=== PATIENT | female | born 1995 | race Caucasian/White ===

== ENCOUNTER 2022-05-22 18:53 | Emergency (ER) | payer OTHER, SELFPAY ==
[2022-05-22 19:00] VITALS: BP 115/78; PULSE 124; RESP 20; TEMP 36.4; O2SAT 100; BMI 23.6
--- NOTE | 2022-05-22 19:11 | ED_ITS ---
HPI - General Adult General Chief complaint: Nausea/Vomiting Stated complaint: 10 and a half weeks , can't keep food down Time Seen by Provider: 05/22/22 19:06 Source: patient Mode of arrival: ambulatory Limitations: no limitations History of Present Illness HPI narrative: 27-year-old female at around 11 weeks gestation coming in today with approximately 12 hours of vomiting. She states that this happened 1 time with couple weeks ago but generally has been having a fairly easy as far as nausea and vomiting goes. She denies any fevers or chills. No chest or abdominal pain. No abdominal cramping. No vaginal discharge. No blood in her vomitus. She also did have 2 episodes of loose stools today. Denies any urinary symptoms. She does not take any medications. Related Data Home Medications Medication Instructions Recorded Confirmed No Known Home Medications 05/22/22 05/22/22 Allergies Allergy/AdvReac Type Severity Reaction Status Date / Time No Known Drug Allergies Allergy Verified 05/22/22 19:03 Review of Systems Status of ROS: Reports: 10 or more systems reviewed and unremarkable except as noted in History and below PFSH PFS Social History Smoking Status: Never smoker Do you use any of these nicotine containing products: None Second hand tobacco smoke exposure: No How often do you have a drink containing alcohol: never AUDIT-C Alcohol total score: 0 Non-prescribed substance use: denies use Exam Narrative: Exam Narrative: Well-nourished well-developed patient in no acute distress. Alert and oriented. Answers questions appropriately. Mood and affect are appropriate. Thoughts are goal oriented and rational. No tangential or magical thinking noted. Patient speaks in full sentences without needing to catch her breath. HEENT: Normocephalic atraumatic. Pupils are equally round reactive to light. Extraocular muscles are intact. Conjunctivae are moist without any icterus noted. Moist mucous membranes. Posterior pharynx is normal. Neck is soft without any lymphadenopathy or thyromegaly. No masses are appreciated. Cardiovascular: Heart is tachycardic with regular rhythm S1 and S2 are present without any murmurs. Lungs: Clear to auscultation bilaterally no wheezes rhonchi or rales are appreciated. Patient takes deep breaths without any discomfort. Abdomen: Soft and nontender nondistended with normal bowel sounds. No guarding or rebound. No masses or organomegaly appreciated. Extremities: Bilateral lower extremities are without edema. Normal DP and PT pulses. Skin: Well perfused without any obvious rashes. Const: Vital Signs, click to edit/add: Vital Signs - 24 hr 05/22/22 19:00 05/22/22 19:50 Temperature 97.6 F Pulse Rate [Pulse Oximeter] 124 H 94 Respiratory Rate 20 18 Blood Pressure [Ri t Upper Arm] 115/78 124/78 Pulse Oximetry 100 98 Oxygen Delivery Me thod Room Air Course Course Hospital Course: IV will be started and labs drawn. L of normal saline and Zofran ordered. Patient feeling significantly better. Drinking water without vomiting. Labs did show elevated white cell count of 15,000 and a slightly elevated bilirubin at 1.8. Vital Signs Vital signs: Initial Vital Signs Temperature 97.6 F 05/22/22 19:00 Temperature Source Temporal Artery Scan 05/22/22 19:00 Pulse Rate 124 H 05/22/22 19:00 Respiratory Rate 20 05/22/22 19:00 Blood Pressure 115/78 05/22/22 19:00 Blood Pressure Mean 90 05/22/22 19:00 Blood Pressure Position Sitting 05/22/22 19:00 Pulse Oximetry 100 05/22/22 19:00 Vital Signs Temperature 97.6 F 05/22/22 19:00 Pulse Rate 124 H 05/22/22 19:00 Respiratory Rate 20 05/22/22 19:00 Blood Pressure 115/78 05/22/22 19:00 Pulse Oximetry 100 05/22/22 19:00 Temperature 97.6 F 05/22/22 19:00 Pulse Rate 94 05/22/22 19:50 Respiratory Rate 18 05/22/22 19:50 Blood Pressure 124/78 05/22/22 19:50 Pulse Oximetry 98 05/22/22 19:50 Oxygen Delivery Method Room Air 05/22/22 19:50 Medical Decision Making MDM Narrative Medical decision making narrative: 27-year-old female 11 weeks with 12 hours of vomiting. Labs slightly abnormal but consistent with 12 hours of vomiting. She is feeling significantly better after fluids and Zofran. Pulse came down to 94 with treatment. At this time patient will be discharged home instructed to follow-up with her primary care provider or [employer] this coming week. Certainly return to the ER if symptoms return. Lab Data Lab results reviewed: Yes I reviewed the patient's lab results Labs: Lab Results 05/22/22 Range/Units 19:26 WBC 15.00 H (4.50-11.00) K/uL RBC 5.10 (4.00-5.20) m/uL Hgb 14.9 (12.0-16.0) gm/dL Hct 43.8 (33.0-51.0) % MCV 86 (80-100) fL MCH 29 (26-34) pg MCHC 34 (32-36) gm/dL RDW Coeff of Dara 11.9 (11.5-15.5) % Plt Count 215 (140-440) K/uL Neut % (Auto) 89.5 H (42.0-72.0) % Lymph % (Auto) 6.1 L (20-44) % [place] % (Auto) 4.0 (0.0-11.0) % Eos % (Auto) 0.1 (0.0-7.0) % Baso % (Auto) 0.1 (0.0-3.0) % Neut # (Auto) 13.40 H (1.7-7.0) K/uL Lymph # (Auto) 0.90 (0.90-2.90) K/uL [place] # (Auto) 0.60 (0.00-0.90) K/UL Eos # (Auto) 0.00 (0.00-0.50) K/uL Baso # (Auto) 0.00 (0.00-0.30) K/uL Sodium 136 (135-149) mmol/L Potassium 4.1 (3.6-5.1) mmol/L Chloride 104 (96-114) mmol/L Carbon Dioxide 24 (20-32) mmol/L BUN 9 (5-24) mg/dL Creatinine 0.5 (0.5-1.5) mg/dL Estimated Creat Clear 154.77 Estimated GFR 133 ml/min Glucose 97 (60-115) mg/dL Calcium 9.4 (8.4-10.6) mg/dL Total Bilirubin 1.8 H (0.1-1.5) mg/dL Direct Bilirubin 0.2 (0.0-0.5) mg/dL AST 24 (12-35) U/L ALT 20 (4-35) U/L Alkaline Phosphatase 55 (40-150) U/L Total Protein 8.1 (6.0-8.3) g/dL Albumin 4.6 (3.3-5.0) g/dL Discharge Plan Discharge Clinical Impression: , Vomiting Patient Disposition: Home, Self-Care Condition: Improved Additional Instructions: Follow-up with your primary care provider or [employer] this coming week. Return to the ER if symptoms return. Prescriptions: No Action No Known Home Medications Follow Up/Referrals: Provider,Not a Local [Primary Care Provider] - Stand Alone Forms: Dear[employer] Info Instructions
[2022-05-22] MEDS: ONDANSETRON 2 MG/ML inj 4 MG IVP (19:25)
[2022-05-22] MEDS: 0.9 % SODIUM CHLORIDE 1000 ml 1,000 ML IV (19:25)
[2022-05-22 19:32] LABS: Basophils Percent Auto 0.1 % (0.0-3.0); Eosinophils Percent Auto 0.1 % (0.0-7.0); Hematocrit 43.8 % (33.0-51.0); Hemoglobin* 14.9 gm/dL (12.0-16.0); Immature Granulocytes Pct Auto 0.2 %; Lymphocytes Percent Auto 6.1 % (20-44); Mean Corpuscular HGB Conc 34 gm/dL (32-36); Mean Corpuscular Hemoglobin 29 pg (26-34); Mean Corpuscular Volume 86 fL (80-100); Neutrophils Percent Auto 89.5 % (42.0-72.0); Platelet Count* 215 K/uL (140-440); RDW Coefficient of Variation % 11.9 % (11.5-15.5)
[2022-05-22 19:37] LABS: Slide Review Reflex No
[2022-05-22 19:45] LABS: Albumin* 4.6 g/dL (3.3-5.0); Chloride* 104 mmol/L (96-114); Potassium* 4.1 mmol/L (3.6-5.1); Sodium* 136 mmol/L (135-149)
[2022-05-22 19:47] LABS: Carbon Dioxide* 24 mmol/L (20-32); Creatinine* 0.5 mg/dL (0.5-1.5); Est. Creatinine Clearance* 154.77; Estimated Glomerular Filt Rate 133 ml/min
[2022-05-22 19:48] LABS: Alanine Aminotransferase* 20 U/L (4-35); Alkaline Phosphatase* 55 U/L (40-150); Aspartate Amino Transferase* 24 U/L (12-35); Bilirubin Direct* 0.2 mg/dL (0.0-0.5); Bilirubin Total* 1.8 mg/dL (0.1-1.5); Blood Urea Nitrogen* 9 mg/dL (5-24); Calcium* 9.4 mg/dL (8.4-10.6); Glucose* 97 mg/dL (60-115); Total Protein* 8.1 g/dL (6.0-8.3)
[2022-05-22 19:50] VITALS: BP 124/78; PULSE 94; RESP 18; O2SAT 98
== END 2022-05-22 20:30 | disposition home or self-care (01) ==
PROVIDERS: Emergency Provider Family Medicine
DX: R11.2 Nausea with vomiting, unspecified (principal); Z3A.10 10 weeks gestation of pregnancy
CPT/HCPCS: 36415; 80048; 80076; 85025; 96374; 99283; 99284; J2405; J7030

== ENCOUNTER 2022-05-28 14:02 | Outpatient (CLI) | payer OTHER, SELFPAY ==
--- NOTE | 2022-05-28 14:00 | CRLHL7_ITS ---
For Patients: As a result of the Cures Act, medical imaging exams and procedure reports are released immediately into your electronic medical record. You may view this report before your referring provider. If you have questions, please contact your health care provider. INDICATION: First trimester scan, establish dates. COMPARISON: None. TECHNIQUE: Real-time hodgson-scale imaging of the pelvis was performed. FINDINGS: Sonographic imaging demonstrates a single living intrauterine gestation. The embryo demonstrates a regular cardiac rate measuring 167 beats per minute. The embryo`s crown-rump length measurement of 6.0 cm corresponds to a gestational age of 12 weeks 3 days with a sonographic due date of 12/07/2022. There is a normal-appearing yolk sac. There are no gross abnormalities noted within the embryo at this early state of development. The gestational sac has a normal appearance. There is no evidence of a perigestational hemorrhage. The amount of fluid within the sac appears appropriate for gestational age. The cervix is closed. The myometrium appears normal. The ovaries are of normal size. Corpus luteal cyst right ovary. There are no suspicious fluid collections noted in the cul-de-sac. IMPRESSION: Normal first trimester OB ultrasound exam. Gestational age calculated at 12 weeks 3 days with a sonographic due date of 12/07/2022. Dictated by Imer Pham MD @ 05/29/2022 11:53:52 AM (Electronically Signed)
== END 2022-05-28 14:03 | disposition home or self-care (01) ==
LOC: US 14:04
PROVIDERS: Visit Provider Advanced Practice Midwife
DX: Z34.91 Encounter for supervision of normal pregnancy, unspecified, first trimester (principal); Z3A.12 12 weeks gestation of pregnancy
CPT/HCPCS: 76801

== ENCOUNTER 2022-05-28 15:10 | Outpatient (CLI) | payer OTHER, SELFPAY ==
[2022-05-28 19:11] LABS: Chlamydia DNA Amplified* NOT DETECTED (No Detected); GC DNA Amplified* NOT DETECTED (No Detected)
== END 2022-05-28 15:11 | disposition home or self-care (01) ==
PROVIDERS: Visit Provider Advanced Practice Midwife
DX: Z34.91 Encounter for supervision of normal pregnancy, unspecified, first trimester (principal); Z3A.11 11 weeks gestation of pregnancy
CPT/HCPCS: 0353U; 82565; 82570; 84156; 84450; 84460; 84520; 84550; 86592; 86703; 86762; 86787; 86803; 86850; 86900; 86901; 87086; 87340; 87491; 87591

== ENCOUNTER 2022-07-23 12:58 | Outpatient (CLI) | payer OTHER, SELFPAY ==
--- NOTE | 2022-07-23 13:00 | CRLHL7_ITS ---
For Patients: As a result of the Century Cures Act, medical imaging exams and procedure reports are released immediately into your electronic medical record. You may view this report before your referring provider. If you have questions, please contact your health care provider. INDICATION: Evaluate anatomy. COMPARISON: 05/28/2022 TECHNIQUE: Real time hodgson scale imaging of the fetus was performed. FINDINGS: Sonographic imaging demonstrates a single living intrauterine gestation. Fetus demonstrates a regular cardiac rate of 159 beats per minute. Fetus has a mark breech position. The placenta lies posteriorly without evidence of placenta previa. The edge of the placenta is located 3.5 cm from the internal cervical os. Amniotic fluid volume appears normal. Single deepest vertical pocket: 3.8 cm. The cervix is closed and measures 4.8 cm in length. The composite ultrasound gestational age is calculated at 19 weeks 4 days with an estimated sonographic due date of 12/13/2022. The estimated weight is 334 grams which lies at the 69th %. The following biometric measurements were obtained: Biparietal diameter: 4.1 cm/18 weeks 3 days 7th% Head circumference: 16.9 cm/19 weeks 4 days 34th% Abdominal circumference: 16.0 cm/21 weeks 1 day 85th% Femur length: 3.0 cm/19 weeks 2 days 28th% The HC/AC ratio measures: 1.06 range (1.08-1.26) On anatomic survey, there is a normal appearance of the cerebral ventricles, cavum septi pellucidi, cisterna magna and cerebellum. The nose, lips, and facial profile appear normal. The cervical, thoracic and lumbar spine are well visualized and appear normal. There is a normal four-chamber heart view and the left and right ventricular outflow tracts appear normal. The diaphragm and stomach appear normal. The kidneys and bladder also appear normal. There is a normal three-vessel cord and cord insertion site. The four extremities appear normal. IMPRESSION: Normal OB ultrasound exam with concordance of clinical and sonographic dating. No intrinsic abnormalities noted on anatomic survey. Dictated by Imer Pham MD @ 07/25/2022 6:28:26 AM (Electronically Signed)
== END 2022-07-23 12:59 | disposition home or self-care (01) ==
LOC: US 12:59
PROVIDERS: Visit Provider Advanced Practice Midwife
DX: Z34.92 Encounter for supervision of normal pregnancy, unspecified, second trimester (principal); Z3A.19 19 weeks gestation of pregnancy
CPT/HCPCS: 76805

== ENCOUNTER 2022-09-18 10:50 | Outpatient (CLI) | payer OTHER, SELFPAY | END 2022-09-18 10:51 | disposition home or self-care (01) | LOC: NFLDREF 09-23 12:49 | PROVIDERS: Visit Provider Advanced Practice Midwife | DX: Z34.82 Encounter for supervision of other normal pregnancy, second trimester (principal); Z3A.27 27 weeks gestation of pregnancy | CPT/HCPCS: 86592 ==

== ENCOUNTER 2022-11-13 09:56 | Outpatient (CLI) | payer OTHER, SELFPAY ==
[2022-11-14 13:54] LABS: Strep B DNA Probe NEGATIVE (Negative)
[2022-11-14 14:15] LABS: Strep B Pen/Amox Allergy No
== END 2022-11-13 09:57 | disposition home or self-care (01) ==
LOC: NFLDREF 09:56 → LAB 14:46
PROVIDERS: Visit Provider Advanced Practice Midwife
DX: Z34.93 Encounter for supervision of normal pregnancy, unspecified, third trimester (principal)
CPT/HCPCS: 87081; 87653

== ENCOUNTER 2022-12-16 15:48 | Outpatient (CLI) | payer OTHER, SELFPAY ==
--- NOTE | 2022-12-16 16:00 | CRLHL7_ITS ---
For Patients: As a result of the Century Cures Act, medical imaging exams and procedure reports are released immediately into your electronic medical record. You may view this report before your referring provider. If you have questions, please contact your health care provider. INDICATION: Post-term . COMPARISON: None available. TECHNIQUE: Ultrasound OB pelvis biophysical profile. Real time hodgson scale imaging of the fetus was performed without non-stress testing. FINDINGS: Sonographic imaging demonstrates a single living intrauterine gestation. The fetus demonstrates a regular cardiac rate of 147 beats per minute. The fetus has a cephalic orientation. The placenta lies posteriorly. Single deepest pocket measures 3.7 cm (2/2). The fetus was active (2/2). There was normal flexion and extension of the trunk and extremities (2/2). The fetus demonstrated normal breathing movements (2/2). IMPRESSION: Normal biophysical profile score 8 out of 8. Dictated by Valeria Sanches MD @ 12/16/2022 9:23:50 PM (Electronically Signed)
== END 2022-12-16 15:49 | disposition home or self-care (01) ==
PROVIDERS: Visit Provider Advanced Practice Midwife
DX: O48.0 Post-term pregnancy (principal); Z3A.41 41 weeks gestation of pregnancy
CPT/HCPCS: 76819

== ENCOUNTER 2022-12-18 05:15 | Inpatient (IN) | payer OTHER, SELFPAY ==
[2022-12-18] VITALS (46 sets, daily range): BP systolic 106–139; BP diastolic 58–88; PULSE 90–133; RESP 16–18; TEMP 36.5–37.2; O2SAT 97–100; BMI 31.2
--- NOTE | 2022-12-18 05:17 | W.PM.LDBA ---
Subjective History of Present Illness Narrative: Flower is a 27 yo [id number] admitted to Labor and Delivery for spontaneous onset of labor/IOL for post-dates. She began having contractions last evening around 5 pm. She reports she did not sleep much because of the contractions. They became increasingly more intense throughout the night. She presented to triage early this morning. She was scheduled to have an IOL today for elective/post-dates. She will be 41 0/7 weeks tomorrow. She is currently supported by her , Reilly, and her behavioral health specialist, Gutierrez. She was in the tub for labor pain relief but felt things were slowing down. She plans to get out of the tub, move around and try to rest a little. She denies any leaking of fluid. She has declined cervical exam at this time. Her full history and physical was dictated by James Schultz CNM on 11/25/2022. Please see this for details. Specific Issues/Plans : Reilly H&P done by James Schultz on 11/25/22 1. Social anxiety -sees therapist 2. Hx of preeclampsia, diagnosed in labor, no medication needed -encouraged to start baby aspirin at 12 weeks -Baseline Labs WNL, P/c ratio 0.4, discuss repeat or consider 24 hour urine -Repeat p/c ratio: 0.4, 24 hour urine collection ordered 06/25 -24 hour urine, pc ratio 0.1 3. Hx of kidney stone. Passed one in 2019, was told there was a second that never passed 4. Varicella non immune. NEEDS vaccine PP. Completed 1 week BS testing from 08/24-08/30 with only 1 of 28 abnormal Needs pap PP COVID: declines Flu: declines Tdap: Will plan to decline Tdap OB - Problem Based A/P Additional Plan (1) Encounter for induction of labor: Status: Acute (2) Pain during labor: Status: Acute Plan ASSESSMENT:? 27 at 40 6/7 weeks gestation? complicated by:?varicella non-immune, hx of kidney stones, hx of Pre-e, and social anxiety Labor type: Spontaneous, Early labor? Category 1 FHR pattern.?? Labor complicated by: none? GBS negative? ? PLAN:? 1. Routine intrapartum cares as ordered. Continue with expectant management. Can consider augmentation if not progressing. 2. Monitoring per policy, intermittent? 3. Planning unmedicated . Desires water . Consent signed. Hep C negative. Candidate for analgesia of choice if desired.?? 4. Patient encouraged to reposition and ambulate to promote physiologic labor and .? 5. Anticipate ? Delivery/Labor/Induction Plan Plan: expectant management and induction (Scheduled for today, came in overnight for early labor; will augment labor if needed.) OB Exam Physical Exam Vital signs: Temp Pulse Resp BP Pulse Ox 97.9 F 90 16 130/84 99 12/18/22 03:06 12/18/22 05:05 12/18/22 03:06 12/18/22 03:06 12/18/22 03:06 Narrative: Vitals Reviewed Constitutional:? Alert and oriented x3 HEENT:? Normocephalic, atraumatic Neck:? Supple Lungs:? Clear to auscultation bilaterally Heart:? Regular rate and rhythm, no murmur, rub or gallop Abdomen:? Soft, nontender, and gravid. Vertex by Derrick's. US two days ago was vertex. Extremities:? No edema or erythema Cervix: Deferred by patient NST: 120 bpm/moderate variability/15x15 accelerations/no decelerations/contractions every 4-6 mins Since reactive NST, intermittent auscultation has been reassuring
[2022-12-18] MEDS: LACTATED RINGERS 1000 ML 1,000 ML 1200 ML IV (09:25)
--- NOTE | 2022-12-18 09:42 | P.OBPN_ITS ---
Subjective Date Seen: 12/18/22 Narrative: ?Nilda is coping with labor pain/contractions. ?Augustine and ariadne Whitley are with her for support. ?Was coping well with contractions in the tub. Over the last hour has started to say I can't do this. and complaining of back labor with constant back pain. She tried distraction, movement and nitrous for pain relief while in the tub but is no longer wanting to continue with this. She has requested an epidural for comfort and pain management.?Anesthesia is in the room placing at this time. Objective Exam: VSS, afebrile General Appearance:? Calm, cooperative. ?No acute distress. ? Psychiatric Exam: Alert and oriented, appropriate affect Abdomen: Gravid Ctx: ?Q 3-5 min apart. ? ? ?Strong FHTs: ?Baseline: 125 intermittently monitored SVE: 8/95%/+2 Membranes: ?AROM clear fluid Vital Signs: Last Vital Signs Temp 98.9 F 12/18/22 08:29 Pulse 109 H 12/18/22 08:29 Resp 18 12/18/22 06:00 BP 121/76 12/18/22 08:29 Pulse Ox 100 12/18/22 09:37 Plan Plan: Assessment:?? at 40.6 weeks gestation?? GBS negative Patient is coping well with challenges of labor.?? Labor type: Spontaneous, Active labor? complicated by: varicella non-immune, hx of kidney stones, hx of Pre- e, and social anxiety Labor complicated by: Augmented by AROM? Plan:?? Epidural as requested by pt for pain relief. Continue with routine intrapartum cares as ordered.?? Patient encouraged to move and change positions to promote physiologic labor and .?? Anticipate progress to NVD. ?
[2022-12-18] MEDS: fentaNYL 100 MCG/2 ML inj EPIDURAL (09:51)
[2022-12-18] MEDS: ROPIVACAINE 0.2% 100 ml 100 ML 12 MG EPIDURAL (10:00)
[2022-12-18] MEDS: LIDOCAINE 2% (PF) 5 ML VIAL EPIDURAL (10:01)
--- NOTE | 2022-12-18 10:41 | PM.ANBPRC ---
[facility] Medical History Kidney stone (2020) ?N20.0 - Calculus of kidney (ICD-10) Normal spontaneous vaginal delivery (09/02/20) ?O80 - Encounter for full-term uncomplicated delivery (ICD-10) Mild pre-eclampsia (08/2020) ?O14.00 - Mild to moderate pre-eclampsia, unspecified trimester (ICD-10) Surgical History Libby teeth extracted ?K08.409 - Partial loss of teeth, unspecified cause, unspecified class (ICD-10) Hx of tonsillectomy ?Z90.89 - Acquired absence of other organs (ICD-10) History of appendectomy ?Z90.49 - Acquired absence of other specified parts of digestive tract (ICD-10) Family History Mother High blood pressure Maternal Grandmother Diabetes High blood pressure Sister Diabetes Social History What is your current living situation?: I presently have a place to live Problems where you live: no known problems In the past 12 months, utilities in danger of being shut off: no In past 12 months, lack of transportation kept you from medical appts, meetings, work, or getting things needed for daily living: no In the past 12 mos, have been you worried that your food would run out before you had money to buy more?: never true In the past 12 mos, the food you bought just didn't last and you didn't have money to buy more?: never true Smoking Status: Never smoker Do you use any of these nicotine containing products: None Second hand tobacco smoke exposure: No How often do you have a drink containing alcohol: never AUDIT-C Alcohol total score: 0 Non-prescribed substance use: denies use How often does anyone, including family, friends and others, physically hurt you: never How often does anyone, including family, friends and others, insult or talk down to you: never How often does anyone, including family, friends and others, threaten you with harm: never How often does anyone, including family, friends and others, scream or curse at you: never Little interest or pleasure in doing things: not at all Feeling down, depressed, or hopeless: not at all Meds Home Medications and Allergies Home Medications Medication Instructions Recorded Confirmed Type prenat.vits,dora,[id number] 1 tab PO QDAY 05/28/22 12/18/22 History red raspberry leaf 1 tab PO .QD 11/13/22 12/18/22 History Allergies Allergy/AdvReac Type Severity Reaction Status Date / Time No Known Drug Allergies Allergy Verified 12/18/22 01:49 Results Vital Signs Vital Signs: Last Vital Signs Temp 98.8 F 12/18/22 10:06 Pulse 110 H 12/18/22 10:40 Resp 18 12/18/22 06:00 BP 113/64 12/18/22 10:40 Pulse Ox 98 12/18/22 10:15 Weight: 85.094 kg Height: 165.1 cm Anesthesia Procedures Epidural Insertion Patient Location: OB Start Time: : Stop Time: 10:00 Start Date: 12/18/22 Stop Date: 12/18/22 Reason for Block: procedure for pain Patient Position: sitting Performed By: Avelino De La Cruz Preanesthetic Checklist: IV checked, risks and benefits discussed, monitors and equipment checked, pre-op evaluation, timeout performed and anesthesia consent Prep: chlorhexidine gluconate Monitoring: blood pressure monitoring, continuous pulse oximetry and heart rate Approach: midline Vertebral Space: lumbar (1-5) Epidural Technique: IGNACIO saline Needle Type: Tuohy needle Injection Technique: continuous catheter Needle gauge: 17 Needle Length (cm): 10 cm Needle Insertion Depth (cm): 6 Catheter Gauge: 19 Catheter Type: multi-orifice Catheter at skin depth (cm): 12 Test Dose Result: negative and lidocaine 1.5% with epinephrine 1 to 200,000
--- NOTE | 2022-12-18 11:25 | W.PM.VAGDE_ITS ---
OB Procedure Vag Delivery Mother Details Mother Details: Nilda is a 27 year-old, 2, Para 2, admitted on 12/18/22 at 40.6 weeks gestation. She was originally coming in for induction for postdates and when arrived was already laboring. She was augmented by AROM for clear fluid. : 2 Para: 2 Weeks Gestation: 40.6 Admission Date: 12/18/22 Additional Details Amniotic Membrane Status: AROM Amniotic Membrane Rupture Date: 12/18/22 Amniotic Membrane Rupture Time: 06:34 Amniotic Membrane Fluid Description: Clear Analgesia/Anesthesia Type: Epidural Waterbirth: No Pitcoin: No Intrapartal Events: Labor Augmentation Delivery augmentation: rupture of membranes Labor Onset: 06:30 Complete: 10:43 Pushin:40 Heart: heart tones during second stage were Category II, FHR 125, moderate variability hard to trace at times, when crowing audibly 80-90's then delivered with next push. Delivery Details Delivery Date: 12/18/22 Delivery Time: 11:05 Route of delivery: Infant Gender: Male Infant Viability: Alive; Heart Rate Present Position at Delivery: OA Delivery Details: 27?y.o?at 40.6 weeks.? Nilda arrived in early labor. She was augmented with AROM for clear fluid. Was laboring well with her partner and uniform designer as support. She changed positions often, was laboring in the tub for a time then wanted to get out and rest in bed as contractions had spaced out. After approximately an hour she became more painful again and got back into the tub, she labored in the tub was coping well. Asked to used nitrous for pain relief which was helping for a time but patient eventually decided she wanted an epidural for relief of her back pain. ?After placement of her epidural she was found to be 9cm, 100% and +2, baby felt to be OT at that time. Encouraged to rest and do position changes in bed. She then progressed to complete and delivered a male infant over intact perineum. ?She pushed in left tilt position effectively.? Spontaneous vaginal delivery at 1105 of?a viable?male infant.??Delivered in vertex OA position.??Shoulders delivered easily.? Spontaneous cry noted.?? placed on maternal abdomen.??Cord?was clamped and cut after a 5+ minute delay.??Nose and mouth were bulb suctioned.? Shoulder dystocia: no? Nuchal cord: no? Meconium stained?fluid: no? Water : no? ? Placenta delivered spontaneously and?complete?at 1116 with a?3 vessel?cord.?? Bleeding controlled with fundal massage.? ? Mother and were stable after delivery.? ? Lacerations:? Intact, no repair. ? Bleeding?post delivery?was: minimal. ?The fundus was firm to palpation.? ? Sponge,?lap?and needles counts are correct.? Mother and infant were stable after delivery.? 1 Minute Interval Total Score: 8 5 Minute Interval Total Score: 9 Additional Details Shoulder Dystocia: No Placenta Delivery Time: 11:16 Placental Delivery Description: Spontaneous Procedure Done: Global Blood Loss: 50 Laceration: None Blood Loss Measurement Type: QBL Bakri Used: No Sponge/Need Count Correct: Yes Cord Vessel Description: 3 Vessels Event Summary Status: Mother and were stable after delivery. Disposition: floor
[2022-12-18] MEDS: IBUPROFEN 600 MG TABLET PO (18:41)
[2022-12-19 00:15] VITALS: BP 111/76; RESP 16; TEMP 36.7; O2SAT 96
[2022-12-19] MEDS: IBUPROFEN 600 MG TABLET PO (00:26)
[2022-12-19 05:38] VITALS: BP 115/77; RESP 16; TEMP 36.5; O2SAT 97
[2022-12-19 08:03] VITALS: BP 101/67; RESP 16; TEMP 36.8
[2022-12-19] MEDS: DOCUSATE SODIUM 100 MG CAPSULE PO (08:05)
--- NOTE | 2022-12-19 08:38 | PM.OBDSVD1 ---
DS: Providers Provider Date Seen: 12/19/22 Date of admission: 12/18/22 05:15 Primary care physician: Not a Local Provider Admitting Clinician: Bernice Guo CNM Attending Physician on discharge: Bernice Guo CNM DS: Diagnosis Discharge Diagnosis (1) care and examination immediately after delivery: Status: Acute (2) Lactating mother: Status: Acute Exam Narrative: Exam Narrative: GENERAL APPEARANCE:? normal affect, alert, no distress MOOD:? appropriate CHEST:? clear to auscultation HEART:? regular rate and rhythm ABDOMEN:? soft, non-tender the uterine fundus is at Umbilicus, Midline and is appropriate for the stage of recovery. PERINEUM:? mild edema of the perineum. EXTREMITIES:? normal and no edema Const: Vital Signs, click to edit/add: Vital Signs - 24 hr 12/18/22 09:32 12/18/22 09:37 12/18/22 09:42 Temperature Pulse Rate Respiratory Rate Blood Pressure Blood Pressure [Le ft Arm] Pulse Oximetry 99 100 100 Oxygen Delivery Me thod 12/18/22 09:47 12/18/22 09:50 12/18/22 09:52 Temperature Pulse Rate 104 H 115 H Respiratory Rate Blood Pressure 136/85 129/80 Blood Pressure [Le ft Arm] Pulse Oximetry 100 100 Oxygen Delivery Me thod 12/18/22 09:54 12/18/22 09:56 12/18/22 09:57 Temperature Pulse Rate 104 H 104 H Respiratory Rate Blood Pressure 136/82 130/78 Blood Pressure [Le ft Arm] Pulse Oximetry 100 Oxygen Delivery Me thod 12/18/22 09:58 12/18/22 10:00 12/18/22 10:02 Temperature Pulse Rate 115 H 113 H 114 H Respiratory Rate Blood Pressure 132/80 126/77 122/76 Blood Pressure [Le ft Arm] Pulse Oximetry 99 Oxygen Delivery Me thod 12/18/22 10:04 12/18/22 10:06 12/18/22 10:06 Temperature 98.8 F Pulse Rate 105 H 93 Respiratory Rate Blood Pressure 125/76 128/79 Blood Pressure [Le ft Arm] Pulse Oximetry Oxygen Delivery Me thod 12/18/22 10:07 12/18/22 10:08 12/18/22 10:10 Temperature Pulse Rate 104 H 91 Respiratory Rate Blood Pressure 118/75 123/76 Blood Pressure [Le ft Arm] Pulse Oximetry 100 Oxygen Delivery Me thod 12/18/22 10:12 12/18/22 10:15 12/18/22 10:17 Temperature Pulse Rate 98 100 108 H Respiratory Rate Blood Pressure 116/71 107/60 113/68 Blood Pressure [Le ft Arm] Pulse Oximetry 98 Oxygen Delivery Me thod 12/18/22 10:18 12/18/22 10:25 12/18/22 10:30 Temperature Pulse Rate 99 92 90 Respiratory Rate Blood Pressure 113/59 L 106/61 109/58 L Blood Pressure [Le ft Arm] Pulse Oximetry Oxygen Delivery Me thod 12/18/22 10:35 12/18/22 10:40 12/18/22 10:47 Temperature Pulse Rate 95 110 H 133 H Respiratory Rate Blood Pressure 111/59 L 113/64 137/74 Blood Pressure [Le ft Arm] Pulse Oximetry Oxygen Delivery Me thod 12/18/22 11:18 12/18/22 11:33 12/18/22 11:46 Temperature 98.6 F Pulse Rate 106 H 105 H Respiratory Rate 18 Blood Pressure 139/88 118/71 Blood Pressure [Le ft Arm] Pulse Oximetry Oxygen Delivery Me thod 12/18/22 11:47 12/18/22 12:17 12/18/22 12:32 Temperature Pulse Rate 112 H 104 H 100 Respiratory Rate Blood Pressure 123/83 122/79 118/72 Blood Pressure [Le ft Arm] Pulse Oximetry Oxygen Delivery Me thod 12/18/22 12:47 12/18/22 13:02 12/18/22 13:03 Temperature 97.9 F Pulse Rate 107 H 105 H Respiratory Rate 16 Blood Pressure 119/70 123/67 Blood Pressure [Le ft Arm] Pulse Oximetry Oxygen Delivery Me thod 12/18/22 13:17 12/18/22 16:27 12/18/22 20:03 Temperature 97.9 F 98.2 F Pulse Rate 105 H Respiratory Rate 16 16 Blood Pressure 122/74 Blood Pressure [Le ft Arm] 114/80 112/76 Pulse Oximetry 97 Oxygen Delivery Me thod Room Air 12/19/22 00:15 12/19/22 05:38 12/19/22 08:03 Temperature 98.0 F 97.7 F 98.2 F Pulse Rate Respiratory Rate 16 16 16 Blood Pressure Blood Pressure [Le ft Arm] 111/76 115/77 101/67 Pulse Oximetry 96 97 Oxygen Delivery Me thod Room Air Room Air OB - DS: Summary Hospital Course Hospital Course: Flower is a 27 y.o. G 2 P 2 who was admitted to [facility] for spontaneous onset of labor. She was admitted in early labor because of scheduled IOL that morning but ultimately labor on her own with only augmentation of AROM. ?She had a NVD that was uncomplicated. The patient feels well. ?The pain is well controlled with current medications. ?She has no new complaints. ?She is breast feeding and reports things are going well. the patient has done well.? Vitals have been stable.? She has remained afebrile.? Has a good appetite, is tolerating a general diet. ?She is voiding without difficulty.? She is passing gas and has not had a bowel movement.? She is ambulating and denies any dizziness.? Has small amount of rubra lochia. Problems: none plan: Discharge home with baby. Follow up in 2 weeks and 6 weeks. , may see if needed Peripartum Data delivery method: Vaginal Laceration description: None complications: none Infant Gender: Male Infant Discharge Plan: Home Status at Discharge Functional status at discharge: independent ambulation Overall status at discharge: patient is progressing back to baseline Time Spent with Patient Time attestation: Total time spent providing and/or coordinating discharge services: Discharge Plan Discharge Disposition: Home, Self-Care Date of Admission: 12/18/22 05:15 Attending Provider on Discharge: Bernice Guo Primary Care Provider: Provider,Not a Local Condition: Stable Anticipated Discharge Date/Time: 12/19/22 12:00 Discharge Medications: New acetaminophen 500 mg Tablet 1,000 mg PO Q6H PRNQty: 0 0RF docusate sodium 100 mg Capsule 100 mg PO DAILY Qty: 90 0RF ibuprofen 600 mg Tablet 600 mg PO Q6H PRNQty: 60 0RF Continued prenat.vits,dora,pki-ftav-nrldy Tablet 1 tab PO QDAY Discontinued red raspberry leaf capsule 1 tab PO .QD Patient Comments: supplement Discharge Orders: Discharge Order (Routine); Ordered 12/19/22 Ordered By: Bernice Guo Patient Education: OB Over the Counter Medication Information, OB Vaginal/Breast Feeding Additional Instructions: Discharge instructions were reviewed with the patient including signs and symptoms of infection and home going medications Nothing vaginally for 6 weeks: no tampons or intercourse Off Work or School for 6 weeks 2-week visit: discuss infant feeding concerns, review control options and screen for anxiety/depression. 6-week visit for an annual exam. consultation services are available to all mothers and babies for the first year after delivery.? To make an appointment, please call [phone]. Activity Level: Activity as Tolerated Discharge Diet: Regular Follow Up Appointments: [facility] [Provider Group] Forms: [employer] Info Instructions
== END 2022-12-19 12:36 | disposition home or self-care (01) | DRG 807 ==
LOC: OB OUT 05:16 → OB 05:16
PROVIDERS: Admitting Provider Advanced Practice Midwife; Visit Provider Advanced Practice Midwife
DX: O48.0 Post-term pregnancy (principal); Z37.0 Single live birth; O99.344 Other mental disorders complicating childbirth; F41.8 Other specified anxiety disorders; Z78.9 Other specified health status; Z87.59 Personal history of other complications of pregnancy, childbirth and the puerperium; Z87.442 Personal history of urinary calculi; Z3A.40 40 weeks gestation of pregnancy
CPT/HCPCS: 01967; A9270; J2371; J2795; J3010; J7120

== ENCOUNTER 2023-03-19 10:47 | Outpatient (RCR) | payer OTHER, SELFPAY | END 2023-06-21 12:58 | disposition home or self-care (01) | PROVIDERS: Visit Provider Advanced Practice Midwife | DX: N81.89 Other female genital prolapse (principal); R27.8 Other lack of coordination; R10.2 Pelvic and perineal pain; N39.3 Stress incontinence (female) (male); Z51.89 Encounter for other specified aftercare | CPT/HCPCS: 97110; 97161; 97535 ==

== ENCOUNTER 2024-08-21 08:59 | Outpatient (CLI) | payer OTHER, SELFPAY ==
--- NOTE | 2024-08-21 09:15 | CRLHL7_ITS ---
For Patients: As a result of the Century Cures Act, medical imaging exams and procedure reports are released immediately into your electronic medical record. You may view this report before your referring provider. If you have questions, please contact your health care provider. OB ULTRASOUND LESS THAN 14 WEEKS, 08/21/2024 CLINICAL HISTORY: Dating and viability. COMPARISON: None. TECHNIQUE: Real time hodgson scale imaging of the fetus was performed. Transvaginal imaging performed. FINDINGS: Imaging: TV. LMP: 06/23/2024. LINWOOD by LMP: 03/30/2025. GA: 8 weeks 3 days. CRL: 1.7 cm, 8 weeks 1 day. LINWOOD 04/01/2025. FHR: 159 bpm. GEST SAC: 3.0 cm, appears WNL. YOLK SAC: 2.8 mm, appears WNL. RIGHT OV: 4.1 x 2.1 x 2.4 cm. LEFT OV: 4.2 x 2.8 x 3.1 cm. CL IMPRESSION: 1. Single living intrauterine measuring 8 weeks 1 day and sonographic due date 04/01/2025. 2. Crescentic posterior subchorionic hemorrhage measures 2.0 x 2.0 x 0.3 cm. Imer Pham M.D. Diagnostic Radiologist [email or web address] Transcribed: 11:45 am DW/Dictated by: Imer Pham MD @ 08/21/2024 11:06:00 AM (Electronically Signed)
== END 2024-08-21 09:00 | disposition home or self-care (01) ==
LOC: US 09:00
PROVIDERS: Visit Provider Midwife
DX: Z34.91 Encounter for supervision of normal pregnancy, unspecified, first trimester (principal); O20.9 Hemorrhage in early pregnancy, unspecified; Z3A.08 8 weeks gestation of pregnancy
CPT/HCPCS: 76817; 87491; 87591; 87624; 88142

== ENCOUNTER 2024-09-20 08:49 | Outpatient (CLI) | payer OTHER, SELFPAY | END 2024-09-20 08:50 | disposition home or self-care (01) | LOC: NFLDREF 09-22 13:57 | PROVIDERS: Visit Provider Midwife | DX: Z34.91 Encounter for supervision of normal pregnancy, unspecified, first trimester (principal); Z87.59 Personal history of other complications of pregnancy, childbirth and the puerperium; Z3A.12 12 weeks gestation of pregnancy | CPT/HCPCS: 82565; 82570; 83020; 83021; 84156; 84443; 84450; 84460; 84520; 85660; 86592; 86703; 86704; 86706; 86762; 86787; 86803; 86850; 87086; 87340 ==

== ENCOUNTER 2024-10-02 08:42 | Outpatient (CLI) | payer OTHER, SELFPAY | END 2024-10-02 08:43 | disposition home or self-care (01) | LOC: NFLDREF 10-04 17:03 | PROVIDERS: Visit Provider Midwife | DX: Z34.82 Encounter for supervision of other normal pregnancy, second trimester (principal); Z87.59 Personal history of other complications of pregnancy, childbirth and the puerperium | CPT/HCPCS: 82570; 84156 ==

== ENCOUNTER 2024-10-18 09:01 | Outpatient (CLI) | payer OTHER, SELFPAY | END 2024-10-18 09:02 | disposition home or self-care (01) | LOC: NFLDREF 10-19 11:29 | PROVIDERS: Visit Provider Midwife | DX: Z34.82 Encounter for supervision of other normal pregnancy, second trimester (principal) | CPT/HCPCS: 84450 ==

== ENCOUNTER 2024-11-17 07:06 | Outpatient (CLI) | payer OTHER, SELFPAY ==
--- NOTE | 2024-11-17 07:15 | CRLHL7_ITS ---
For Patients: As a result of the Century Cures Act, medical imaging exams and procedure reports are released immediately into your electronic medical record. You may view this report before your referring provider. If you have questions, please contact your health care provider. OB ULTRASOUND LMP: 06/23/2024. LINWOOD by US: 03/30/2025. GA: 21 w, 0 d. INDICATION: FAS. TECHNIQUE: Real time hodgson scale imaging of the fetus was performed. Evaluate anatomy. Transabdominal imaging performed. position: Transverse. Head to maternal left. Cervix: Visualized. Technique: Transabdominal. Length of closed cervix: 5.1 cm. Placenta/cord: Placental position: Anterior. Technique: Transabdominal. Placenta tip to internal OS: 0.7 cm. Umbilical Cord: 3-vessel cord. Placenta insertion: Marginal (within 2 cm of placenta edge). Amniotic Fluid: 5.4 cm SDP (greater than/equal to: 2- less than 8 cm). SURVEY: Observed Structures. Calvarium/Spine: Cerebellum: 2.2 cm, 21 w 6 d. Cisterna Magna: 6.2 mm. Nuchal Fold: 5.1 mm. Lateral Ventricle: 6.9 mm. CSP: Yes. Midline Falx: Yes. Choroid Plexus: Yes. Spine: Yes. Abdomen: Stomach: Yes. Abd Cord Insertion: Yes. Urinary Bladder: Yes. Kidneys: Yes. Diaphragm: Yes. Face: Nose/lips: Yes. Orbital view: Yes. Profile: - Limbs: Upper Extremities: Yes. Lower Extremities: Yes. Hands: Yes. Feet: Yes. Vascular: 4-Chamber Heart: - LVOT: - RVOT: - 3VV: Yes. 3VTV: Yes. BPD: 4.6 cm. 20 w, 0 d, 12.5 percent. HC: 17.6 cm. 20 w, 1 d, 9.3 percent. AC: 16.2 cm. 21 w, 2 d, 53.9 percent. FL: 3.2 cm. 20 w, 0 d, 12.4 percent. FL/AC ratio: 19.8 percent. HC/AC ratio: 1.1. heart rate: 149 bpm. age by this US: 20 w, 5 d. LINWOOD by this US: 04/01/2025. EFW: 366.4 g. Weight: 13 oz. Percentile by LINWOOD: 26.0 percent. IMPRESSION: 1. Concordance of clinical and sonographic dating. 2. Marginal placental cord insertion located 9 mm from the placental edge. 3. The anterior placental edge is located 7 mm from the internal cervical os. 4. Incomplete visualization of the heart and profile due to position. Remainder of the anatomic survey normal. Imer Pham M.D. Diagnostic Radiologist [email or web address] MAURO/Dictated by: Imer Pham MD @ 11/17/2024 4:03:00 PM (Electronically Signed)
== END 2024-11-17 07:07 | disposition home or self-care (01) ==
LOC: US 07:07
PROVIDERS: Visit Provider Advanced Practice Midwife
DX: Z36.2 Encounter for other antenatal screening follow-up (principal); O43.192 Other malformation of placenta, second trimester; Z3A.21 21 weeks gestation of pregnancy
CPT/HCPCS: 76805

== ENCOUNTER 2024-12-01 12:12 | Outpatient (CLI) | payer OTHER, SELFPAY ==
--- NOTE | 2024-12-01 12:15 | CRLHL7_ITS ---
For Patients: As a result of the Century Cures Act, medical imaging exams and procedure reports are released immediately into your electronic medical record. You may view this report before your referring provider. If you have questions, please contact your health care provider. OBSTETRICAL ULTRASOUND ??? FOLLOW-UP INDICATION: Complete survey; follow-up on missing images. CLINICAL HISTORY: LMP: 06/23/2024 LINWOOD by LMP: 03/30/2024 Gestational Age: 23 weeks 0 days COMPARISON: 11/17/2024. TECHNIQUE: Real-time hodgson-scale transabdominal imaging of the fetus was performed. FINDINGS: Fetus: Single Cervix: Visualized, 4.4 cm TA positioning: Vertex Amniotic Fluid: 5.9 cm SDP Placenta technique: Transabdominal Placenta position: Anterior heart rate: 141 bpm IMPRESSION: 1. Marginal cord insertion is noted with the cord inserting 1.4 cm from the placental edge. 2. Anterior placental edge is located 9.7 cm from the internal cervical os. 3. Normal RVOT, LVOT and four-chamber view. Normal profile. IMER COOLEY M.D. Diagnostic Radiologist [email or web address] Transcribed: 11:[address]/Dictated by: Imer Cooley MD @ 12/04/2024 11:19:00 AM (Electronically Signed)
== END 2024-12-01 12:13 | disposition home or self-care (01) ==
LOC: US 12:12
PROVIDERS: Visit Provider Advanced Practice Midwife
DX: O44.02 Complete placenta previa NOS or without hemorrhage, second trimester (principal); O43.192 Other malformation of placenta, second trimester; Z3A.23 23 weeks gestation of pregnancy
CPT/HCPCS: 76816

== ENCOUNTER 2024-12-28 12:30 | Outpatient (CLI) | payer OTHER, SELFPAY | END 2024-12-28 12:31 | disposition home or self-care (01) | LOC: NFLDREF 01-06 11:23 | PROVIDERS: Visit Provider Midwife | DX: Z34.93 Encounter for supervision of normal pregnancy, unspecified, third trimester (principal) | CPT/HCPCS: 86592 ==